=== PATIENT | female | born 1970 | race Caucasian/White ===

== ENCOUNTER 2016-08-04 21:37 | Emergency (ER) | payer MEDICAID ==
[~2016-08-04] VITALS: Ht 162.6 cm; Wt 67.5 kg
[~2016-08-04 21:37] MED LIST: OXYC30TA66 PO
[2016-08-04] MEDS ORDERED: ALBUTEROL/IPRATROPIUM 2.5MG/0.5MG, 3 ML ONE (22:25)
[2016-08-04] MEDS ORDERED: ALBUTEROL/IPRATROPIUM 2.5MG/0.5MG, 3 ML NPPB ONE (22:30)
[2016-08-04 22:32] LABS: BLOOD UREA NITROGEN 19 mg/dL (7-18)
[2016-08-04 22:37] LABS: IS PT STATUS REG ER OR PRE ER? YES
[2016-08-04] MEDS ORDERED: ALBU0.63 NEB (23:01)
[2016-08-04 23:22] VITALS: BP 147/83
== END 2016-08-04 23:28 | disposition home or self-care (01) ==
LOC: ED 23:00
DX: J44.0 Chronic obstructive pulmonary disease with (acute) lower respiratory infection (principal); J20.9 Acute bronchitis, unspecified; J18.9 Pneumonia, unspecified organism
CPT/HCPCS: 36415; 71010; 80048; 82040; 84484; 85025; 93005; 94640; 99285; J7512; J7620